=== PATIENT | female | born 1970 | race Caucasian/White ===

== ENCOUNTER 2017-11-03 17:35 | Inpatient (IN) | payer OTHER ==
[~2017-11-03] VITALS: Ht 165.1 cm; Wt 86.2 kg
[~2017-11-03 17:35] MED LIST: PERCOCET 5/3251 TAB PO; SYNTHROID50 MCG PO; [UNRECOGNIZED DRUG - OTHER] PO
[2017-11-15] MEDS ORDERED: PROTONIX40 MG PO (13:52)
[2017-11-15] MEDS ORDERED: AMOX1TAB5 PO (13:52)
[2017-11-15] MEDS ORDERED: INTESTINEX680 M1 PO (13:52)
[2017-11-15] MEDS ORDERED: ULTRACET PO (13:55)
== END 2017-11-15 15:03 | disposition home or self-care (01) | DRG 419 ==
LOC: ER 17:35 → SURH 11-04 12:58 → SEC-K 11-04 12:58 → SURH 11-04 16:35
PROVIDERS: Surgery
PROC: BF37ZZZ Magnetic Resonance Imaging (MRI) of Pancreas (ICD-10-PCS; 2017-11-04)
PROC: 3E0336Z Introduction of Nutritional Substance into Peripheral Vein, Percutaneous Approach (ICD-10-PCS; 2017-11-04)
PROC: 0F798ZZ Dilation of Common Bile Duct, Via Natural or Artificial Opening Endoscopic (ICD-10-PCS; 2017-11-08)
PROC: 0FC98ZZ Extirpation of Matter from Common Bile Duct, Via Natural or Artificial Opening Endoscopic (ICD-10-PCS; 2017-11-08)
PROC: 0FT44ZZ Resection of Gallbladder, Percutaneous Endoscopic Approach (ICD-10-PCS; principal; 2017-11-10 08:00)
PROC: 3E0F7GC Introduction of Other Therapeutic Substance into Respiratory Tract, Via Natural or Artificial Opening (ICD-10-PCS; 2017-11-11)
PROC: 4A033R1 Measurement of Arterial Saturation, Peripheral, Percutaneous Approach (ICD-10-PCS; 2017-11-13)
DX: K80.65 Calculus of gallbladder and bile duct with chronic cholecystitis with obstruction (principal)